=== PATIENT | female | born 1985 | race Two or more races ===

== ENCOUNTER 2017-08-25 15:29 | Inpatient (IN) | payer OTHER ==
[~2017-08-25] VITALS: Ht 165.1 cm; Wt 3.2 kg
[2017-08-26] MEDS ORDERED: PRENATAL 19 TA1 EACH PO (09:42)
[2017-08-29] MEDS ORDERED: PRENATAL 19 TA1 EACH PO (08:51)
[2017-08-29] MEDS ORDERED: CODE1TAB37 PO (08:51)
== END 2017-08-29 12:31 | disposition home or self-care (01) | DRG 766 ==
LOC: LDR 15:29 → OB/GYN 08-26 20:15
PROVIDERS: Obstetrics & Gynecology
PROC: 4A1HXCZ Monitoring of Products of Conception, Cardiac Rate, External Approach (ICD-10-PCS; 2017-08-25)
PROC: 3E033VJ Introduction of Other Hormone into Peripheral Vein, Percutaneous Approach (ICD-10-PCS; 2017-08-26)
PROC: 4A033R1 Measurement of Arterial Saturation, Peripheral, Percutaneous Approach (ICD-10-PCS; 2017-08-26)
PROC: 10D00Z1 Extraction of Products of Conception, Low, Open Approach (ICD-10-PCS; principal; 2017-08-26 18:00)
DX: O61.0 Failed medical induction of labor (principal); O62.0 Primary inadequate contractions; O62.1 Secondary uterine inertia; O48.0 Post-term pregnancy; Z3A.40 40 weeks gestation of pregnancy; Z37.0 Single live birth

== ENCOUNTER 2024-03-03 10:10 | Outpatient (CLI) | payer OTHER ==
[~2024-03-03 10:10] MED LIST: CODE1TAB37 PO; PRENATAL 19 TA1 EACH PO
== END 2024-03-03 10:11 | disposition home or self-care (01) ==
LOC: PRENATAL 10:10
PROVIDERS: ATTEND Obstetrics & Gynecology Maternal & Fetal Medicine
DX: O35.3XX0 Maternal care for (suspected) damage to fetus from viral disease in mother, not applicable or unspecified (principal); O44.00 Complete placenta previa NOS or without hemorrhage, unspecified trimester; O34.219 Maternal care for unspecified type scar from previous cesarean delivery; O09.529 Supervision of elderly multigravida, unspecified trimester; Z3A.25 25 weeks gestation of pregnancy

== ENCOUNTER → 2024-04-19 10:28 | Outpatient (CLI) | payer OTHER | END | disposition home or self-care (01) | LOC: PRENATAL 10:28 | PROVIDERS: ATTEND Obstetrics & Gynecology Maternal & Fetal Medicine | DX: O36.8199 Decreased fetal movements, unspecified trimester, other fetus (principal); O26.849 Uterine size-date discrepancy, unspecified trimester; O09.529 Supervision of elderly multigravida, unspecified trimester; O34.219 Maternal care for unspecified type scar from previous cesarean delivery; Z3A.33 33 weeks gestation of pregnancy ==

== ENCOUNTER 2024-06-01 09:30 | Inpatient (IN) | payer OTHER ==
[~2024-06-01] VITALS: Ht 165.1 cm; Wt 74.8 kg
[2024-06-01 10:00] VITALS: BP 121/89
[2024-06-01] MEDS ORDERED: CEFOXITIN SODIUM 2,000 MG VIAL IV SCH (10:30)
[2024-06-01] MEDS ORDERED: RINGERS SOLUTION,LACTATED 1,000 ML IV SCH ×2 (10:30→14:00)
[2024-06-01 10:48] LABS: HEMATOCRIT 38.7 % (36.0-45.00); MEAN CELL VOLUME 86.6 fL (80.00-100.00); MEAN CORPUSCULAR HEMOGLOBIN 29.1 pg (27.00-32.0); MEAN CORPUSCULAR HGB CONC 33.7 g/dl (32.0-36.0); PLATELET COUNT 234 K/uL (150-450); RED BLOOD COUNT 4.47 M/uL (4.00-6.00); RED CELL DISTRIBUTION WIDTH 12.8 % (11.5-14.5)
[2024-06-01 10:51] LABS: PH,URINE 6.5 (5.0-8.0); URINE APPEARANCE Clear; URINE BILIRRUBIN Negative (NEGATIVE); URINE BLOOD Negative; URINE COLOR Yellow; URINE GLUCOSE Negative (NEGATIVE); URINE KETONE Negative (NEGATIVE); URINE LEUKOCYTE Small; URINE NITRATE Negative; URINE PROTEIN Negative (NEGATIVE); URINE UROBILINOGEN 0.2 E.U./dl
[2024-06-01 10:56] LABS: URINE BACTERIA 1162.7 uL (0.0-1933); URINE EPITHELIAL CELLS 30.5 uL (0.0-38.8); URINE RBC 2.3 uL (0.0-20.8); URINE WBC 47.1 uL (0.0-23.2)
[2024-06-01] MEDS ORDERED: SYNTHROID50 MCG PO (10:57)
[2024-06-01 11:14] LABS: INR < 0.93; PARTIAL THROMBOPLASTIN TIME 26.2 SECONDS (22.0-34.0); PROTHROMBIN TIME 10.1 SECONDS (9.0-11.5)
[2024-06-01 11:37] VITALS: BP 116/79
[2024-06-01 11:50] LABS: ALBUMIN 2.6 gm/dL (3.4-5.0); BILIRUBIN TOTAL 0.74 mg/dL (0.3-1.2); CALCIUM 8.5 mg/dL (8.5-10.1); CREATININE SERUM 0.58 mg/dL (0.55-1.02); GFR 115.73; GLOBULINA 3.8 G/DL (2.4-3.5); POTASSIUM 4.23 mEq/L (3.5-5.1); TOTAL PROTEIN 6.4 gm/dL (6.4-8.2)
[2024-06-01] MEDS ORDERED: OXYTOCIN 10 UNITS/ML VIAL IV ONE (12:30)
[2024-06-01] MEDS ORDERED: ERYTHROMYCIN BASE OPHT 1GM EACH TUBE OP ONE (12:30)
[2024-06-01] MEDS ORDERED: SIMETHICONE 125 MG CAPSULE PO SCH (13:58)
[2024-06-01] MEDS ORDERED: ACETAMINOPHEN 325 MG TABLET PO SCH (13:59)
[2024-06-01] MEDS ORDERED: MEPERIDINE HCL/PF 50 MG/ML VIAL IV SCH (14:00)
[2024-06-01] MEDS ORDERED: PROMETHAZINE HCL 25 MG/ML AMPUL IV SCH (14:00)
[2024-06-01] MEDS ORDERED: OXYTOCIN 1,000 ML IV SCH (14:00)
[2024-06-01 15:13] LABS: HEMATOCRIT 35.6 % (36.0-45.00); HEMOGLOBIN 11.6 g/dL (12.0-15.00); MEAN CELL VOLUME 87.7 fL (80.00-100.00); MEAN CORPUSCULAR HEMOGLOBIN 28.5 pg (27.00-32.0); MEAN CORPUSCULAR HGB CONC 32.5 g/dl (32.0-36.0); PLATELET COUNT 182 K/uL (150-450); RED BLOOD COUNT 4.05 M/uL (4.00-6.00); RED CELL DISTRIBUTION WIDTH 12.6 % (11.5-14.5)
[2024-06-01 17:10] VITALS: BP 125/80
[2024-06-02] VITALS: BP 135/76
[2024-06-02 05:17] VITALS: BP 122/77
[2024-06-02] MEDS ORDERED: ACETAMINOPHEN WITH CODEINE 1 UDTAB TABLET PO PRN (08:00)
[2024-06-02] MEDS ORDERED: NAPROXEN 500 MG TABLET PO PRN (08:00)
[2024-06-02 08:43] VITALS: BP 130/78
[2024-06-02] MEDS ORDERED: DOCUSATE SODIUM 100MG CAP PO SCH (09:00)
[2024-06-02 15:46] VITALS: BP 129/80
[2024-06-03 00:12] VITALS: BP 135/83
[2024-06-03 10:26] VITALS: BP 115/79
[2024-06-03 16:00] VITALS: BP 122/81
[2024-06-04 02:00] VITALS: BP 111/73
[2024-06-04 08:36] VITALS: BP 126/80
[2024-06-04] MEDS ORDERED: NAPR500T14 PO (08:36)
[2024-06-04] MEDS ORDERED: ACETAMINOPHEN-1 EAC2 PO (08:37)
[2024-06-04] MEDS ORDERED: COLACE100 MG PO (08:37)
== END 2024-06-04 11:09 | disposition home or self-care (01) | DRG 785 ==
LOC: OB/GYN 09:30 → LDR 09:30 → OB/GYN 13:19
PROVIDERS: Obstetrics & Gynecology; ADMIT Obstetrics & Gynecology; ATTEND Obstetrics & Gynecology
PROC: 0UB70ZZ Excision of Bilateral Fallopian Tubes, Open Approach (ICD-10-PCS; 2024-06-01)
PROC: 4A1HXCZ Monitoring of Products of Conception, Cardiac Rate, External Approach (ICD-10-PCS; 2024-06-01)
PROC: 10D00Z1 Extraction of Products of Conception, Low, Open Approach (ICD-10-PCS; principal; 2024-06-01 12:45)
DX: O99.824 Streptococcus B carrier state complicating childbirth (principal); O34.211 Maternal care for low transverse scar from previous cesarean delivery; Z3A.38 38 weeks gestation of pregnancy; Z37.0 Single live birth; Z20.822 Contact with and (suspected) exposure to COVID-19; Z30.2 Encounter for sterilization